=== PATIENT | male | born 1945 | race Caucasian/White ===

== ENCOUNTER → 2017-12-26 08:03 | Outpatient (CLI) | payer MEDICARE, SELFPAY ==
--- NOTE | 2017-12-26 08:09 | CT_ITS ---
EXAM: CT LUNG LOW DOSE WO CONTRAST COMPARISON: None HISTORY: 72-year-old male with greater than 30 pack-year smoking history asymptomatic ORDERING PHYSICIAN: Shayne Gonzalez MD PATIENT AGE: 72 years TECHNIQUE: The exam was performed on a GE Light Speed [address] scanner using 2.95 mGy CTDI. A low dose helical CT CHEST was performed on a multi-detector scanner The LDCT was performed in a facility that meets the criteria for the screening program. Data regarding this exam was submitted to ACR which is an approved registry. The order for this exam indicates that it came as a result of a lung cancer screening counseling shard decision-making visit that included all the elements required of such a visit including smoking cessation. The radiologist interpreting this exam meets the [facility] criteria for the LDCT lung cancer screening program. The exam is reported using the Lung-RADS classification scale and reported to the ACR registry. NOTE: This study was performed for the specific purposes of lung cancer screening and is not an alternative to diagnostic chest CT. RADIATION DOSE: CTDI vol(CT dose Index-volume) = 2.95mG DLP (Dose Length Product) = oral 5.62 mGcm FINDINGS: There are centrilobular emphysematous changes with obstructive chronic bronchitis. Scattered areas of pulmonary fibrosis are noted. No suspicious nodules are apparent. There are few scattered calcified granulomas. There is been a prior CABG with coronary artery calcification and atherosclerotic calcification of the thoracic aorta. Isodense rounded areas are present in the right upper quadrant posteriorly probably related to renal cysts. The kidneys are not visualized. Probable left renal cyst also noted. IMPRESSION: 1. Lung RADS Category: 2, benign 2. Other findings: Centrilobular emphysema with COPD fibrotic changes RECOMMENDATIONS: 12 month LDCT follow-up screening exam
== END ==
PROVIDERS: PCP Family Medicine; Visit Provider Family Medicine
DX: Z87.891 Personal history of nicotine dependence (principal); Z12.2 Encounter for screening for malignant neoplasm of respiratory organs

== ENCOUNTER → 2018-04-03 10:51 | Outpatient (POV) | payer MEDICARE, SELFPAY | PROVIDERS: Visit Provider Otolaryngology | DX: Z00.00 Encounter for general adult medical examination without abnormal findings (principal) ==

== ENCOUNTER → 2018-06-05 11:26 | Outpatient (POV) | payer MEDICARE, SELFPAY | PROVIDERS: Visit Provider Otolaryngology | DX: Z00.00 Encounter for general adult medical examination without abnormal findings (principal) ==

== ENCOUNTER → 2018-10-25 12:53 | Outpatient (CLI) | payer MEDICARE, SELFPAY ==
[2018-10-25 13:19] LABS: Blood Urea Nitrogen 25 mg/dL (7-18); Creatinine,Serum 1.38 mg/dL (0.70-1.30); Estimated Glomerular Filt Rate 51 ml/min (>60); GFR (African American) 61 ML/MIN (>60)
== END ==
PROVIDERS: PCP Family Medicine; Visit Provider Orthopaedic Surgery
DX: M67.432 Ganglion, left wrist (principal)
CPT/HCPCS: 36415; 82565; 84520

== ENCOUNTER → 2018-11-29 14:23 | Outpatient (CLI) | payer MEDICARE, SELFPAY ==
--- NOTE | 2018-11-29 14:31 | US_ITS ---
US extremity LT limited HISTORY: Nodule the left wrist ITS.REASON: evaluate ganglion cyst ORDERING PHYSICIAN: Ashly Ndiaye MD PATIENT AGE: 73 years COMPARISON: None FINDINGS: Ultrasound performed of the palpable area in the left wrist anteriorly. There is a 17 x 18 mm heterogeneous hyperechoic nodule in the anterior left wrist. The nodule mostly iso to slightly hyperechoic with areas of decreased echogenicity anteriorly. This does not have a typical appearance for ganglionic which is usually iso to hypoechoic. IMPRESSION: Mixed heterogeneous rounded nodule at 17 mm corresponding to palpable abnormality left wrist. Etiology is indeterminate based on sonographic appearance and does not have a typical appearance for a ganglion cyst. Consider MRI without and with contrast for more thorough evaluation. Also recommend correlation with any plain films. There are no previous exams available at this institution
== END ==
PROVIDERS: PCP Family Medicine; Visit Provider Orthopaedic Surgery
DX: M67.40 Ganglion, unspecified site (principal)
CPT/HCPCS: 76882

== ENCOUNTER → 2019-05-02 07:40 | Outpatient (CLI) | payer MEDICARE, SELFPAY ==
--- NOTE | 2019-05-02 07:45 | US_ITS ---
US abd. aorta screening HISTORY: ITS.REASON: CAD ORDERING PHYSICIAN: Shayne Gonzalez MD PATIENT AGE: 73 years Comparison: None FINDINGS: There is a fusiform mid to lower abdominal aortic aneurysm which measures 5 cm AP.. This does not appear to involve the bifurcation. There is some mural thrombus within the aneurysm. IMPRESSION: 5 cm lower abdominal aortic aneurysm. Suggest CT angiogram for more thorough evaluation
--- NOTE | 2019-05-02 07:46 | CT_ITS ---
CT lung screening EXAM: CT LUNG LOW DOSE WO CONTRAST HISTORY: 30 pack-year smoking history, asymptomatic for lung cancer ITS.REASON: H/O NICOTINE DEPENDENCE ORDERING PHYSICIAN: Shayne Gonzalez MD PATIENT AGE: 73 years COMPARISON: 12/26/2017 TECHNIQUE: The exam was performed on a GE Light Speed [address] scanner using 2.90 mGy CTDI. A low dose helical CT CHEST was performed on a multi-detector scanner. All CT scans at the facility use one or more dose reduction, viz: automated exposure control, ma/kV adjustment per patient size (including targeted exams where dose is matched to indication, i.e. head), or iterative reconstruction technique. The LDCT was performed in a facility that meets the criteria for the screening program. Data regarding this exam was submitted to ACR which is an approved registry. The order for this exam indicates that it came as a result of a lung cancer screening counseling shard decision-making visit that included all the elements required of such a visit including smoking cessation. The radiologist interpreting this exam meets the CMS criteria for the LDCT lung cancer screening program. The exam is reported using the Lung-RADS classification scale and reported to the ACR registry. NOTE: This study was performed for the specific purposes of lung cancer screening and is not an alternative to diagnostic chest CT. RADIATION DOSE: CTDI vol(CT dose Index-volume) = 2.90mG DLP (Dose Length Product) = 107.59 mGcm FINDINGS: Centrilobular emphysema with obstructive chronic bronchitis and scattered areas of pulmonary fibrosis. There are few scattered calcified granulomas. No suspicious nodules. Prior CABG with coronary artery calcification. Renal cysts. There is a stable 4 mm nodule in the right upper lobe. 8 mm isodensity in the left aspect of the liver consistent with a small cyst IMPRESSION: 1. Lung RADS Category: 2, benign 2. Other findings: Centrilobular emphysema with COPD and scattered areas of scarring/pulmonary fibrotic change RECOMMENDATIONS: 12 month LDCT follow-up
== END ==
PROVIDERS: PCP Family Medicine; Visit Provider Family Medicine
DX: Z12.2 Encounter for screening for malignant neoplasm of respiratory organs (principal); Z87.891 Personal history of nicotine dependence; I25.10 Atherosclerotic heart disease of native coronary artery without angina pectoris
CPT/HCPCS: 76705

== ENCOUNTER → 2022-03-07 10:21 | Outpatient (CLI) | payer MEDICARE, SELFPAY ==
[2022-03-07 11:09] LABS: Blood Urea Nitrogen 33 mg/dl (9-20); Estimated Glomerular Filt Rate 46 ml/min (>60); GFR (African American) 55 ML/MIN (>60)
== END ==
PROVIDERS: Visit Provider Family Medicine
DX: M51.16 Intervertebral disc disorders with radiculopathy, lumbar region (principal)
CPT/HCPCS: 36415; 82565; 84520

== ENCOUNTER → 2022-03-08 09:22 | Outpatient (CLI) | payer MEDICARE, SELFPAY ==
--- NOTE | 2022-03-08 16:33 | MR_ITS ---
PROCEDURE INFORMATION: Exam: MR Lumbar Spine Without and With Contrast Exam date and time: 03/08/2022 4:52 PM Age: 76 years old Clinical indication: Low back pain; Additional info: Lumbar disc disease TECHNIQUE: Imaging protocol: Multiplanar magnetic resonance images of the lumbar spine without and with intravenous contrast. Contrast material: ISOVUE; Contrast volume: 15 ml; Contrast route: IV; COMPARISON: AAA US abd. aorta screening 05/02/2019 8:15 AM FINDINGS: Numerous renal cyst bilaterally alignment is grossly normal. signal intensity within the bone marrow is normal. conus terminates at the mid aspect of L1. Soft tissues are unremarkable. Annular disk bulge and/or protrusions diffusely. Multilevel neural foraminal narrowing and central canal narrowing Schmorl's node inferior endplate L4 as well as the inferior endplate L1 No significant marrow edema Hemangioma L2 L1-L2: Severe narrowing of the central canal secondary to facet hypertrophic changes, ligamentum flavum hypertrophic changes, and a broad-based annular bulge. L2-L3: Severe narrowing of the central canal secondary to facet hypertrophic changes, ligamentum flavum hypertrophic changes, and a broad-based annular bulge. L3-L4: Severe narrowing of the central canal secondary to facet hypertrophic changes, ligamentum flavum hypertrophic changes, and a broad-based annular bulge. L4-L5: Severe narrowing of the central canal secondary to facet hypertrophic changes, ligamentum flavum hypertrophic changes, and a broad-based annular bulge. L5-S1: Broad-based annular disc bulge lateralizing to the right and left as well as effacing the anterior aspect of the thecal sac. Central and left paracentral disc protrusion. IMPRESSION: Severe degenerative disc disease with severe central canal narrowing throughout nearly the entire lumbar spine Severe multilevel neural foraminal narrowing. Numerous renal cyst.
--- NOTE | 2022-03-08 16:35 | XR_ITS ---
PROCEDURE INFORMATION: Exam: XR Orbits, MR Screening Exam date and time: 03/08/2022 4:43 PM Age: 76 years old Clinical indication: Other: Prior history of metal in both eyes; Additional info: Rule out metal foreign body for mri TECHNIQUE: Imaging protocol: XR of the orbits. Exam was performed for MR screening. Views: 1 or 2 views COMPARISON: No relevant prior studies available. FINDINGS: Sinuses: Well aerated. No opacification. Bones/joints: No fracture. Soft tissues: No evidence of radiopaque foreign body. IMPRESSION: No evidence of radiopaque foreign body.
== END ==
PROVIDERS: PCP Family Medicine; Visit Provider Family Medicine
DX: M51.36 Other intervertebral disc degeneration, lumbar region (principal); H05.53 Retained (old) foreign body following penetrating wound of bilateral orbits
CPT/HCPCS: 70200; 72158; 76376; A9576

== ENCOUNTER 2024-05-08 13:05 | Outpatient (CLI) | payer MEDICARE, SELFPAY ==
--- NOTE | 2024-05-08 13:09 | US_ITS ---
FINAL REPORT CLINICAL HISTORY: RENAL INSUFFICIENCY COMPARISON: None FINDINGS: RENAL ULTRASOUND Ultrasound images of the kidneys were obtained. Limited images of the liver parenchyma demonstrates normal echogenicity. The right kidney measures 9.6 cm in length. The left kidney measures 12.8 cm in length. There is normal renal size. However, the renal parenchyma is hypoechoic suggesting medical renal disease. There is no hydronephrosis. There are too numerous to count cysts in both kidneys suggesting polycystic renal disease. The largest on the right measures up to 4.5 cm and the largest on the left measures up to 6.5 cm. IMPRESSION: Abnormal appearance of the parenchyma compatible with medical renal disease. Findings suggesting polycystic renal disease. Reviewed, Interpreted and Dictated by Shayne Coleman MD Transcribed by Katerine Ellison Authenticated and [facility]
== END 2024-05-08 23:59 | disposition home or self-care (01) ==
PROVIDERS: PCP Psychiatry & Neurology Sleep Medicine; Visit Provider Family Medicine
DX: N28.9 Disorder of kidney and ureter, unspecified (principal)
CPT/HCPCS: 76770